=== PATIENT | female | born 1940 | race Caucasian/White ===

== ENCOUNTER → 2020-01-11 | Emergency (ER) | payer SELFPAY ==
[~2020-01-11] VITALS: Ht 1 cm; Wt 0.5 kg
[~2020-01-11] MED LIST: EPINEPHrine HCL 1 MG/10 ML SYRG IV ONE; MIDAZOLAM DRIP 50 mg/50mL 50 ML IV SCH; NOREPINEPHRINE 8 MG/250ML KIT 250 ML IV SCH; SODIUM BICARBONATE 8.4% INJ 50ML SYRINGE IV ONE; SODIUM CHLORIDE 0.9% 2,000 ML IV ONE
[2020-01-11 19:28] LABS: Basophils # (auto) 0 10 ^3/uL (0-0.2); Basophils % (auto) 0.1 % (0.0-2.0); Eosinophils # (auto) 0 10 ^3/uL (0-0.8); Lymphocytes # (auto) 1.2 10 ^3/uL (0.4-5.4)
[2020-01-11 19:30] LABS: Eosinophils % (auto) 0.1 % (0.0-7.0); Hematocrit 49.6 % (36.0-46.0); Hemoglobin 14.7 g/dL (12.2-16.2); Lymphocytes % (auto) 7.6 % (10.0-50.0); Mean Corpuscular Hemoglobin 25.8 pg (28.0-32.0); Mean Corpuscular Hgb Conc. 29.6 g/dL (32.0-36.0); Mean Corpuscular Volume 87.2 fL (80.0-100.0); Monocytes # (auto) 0.4 10 ^3/uL (0-1.3); Monocytes % (auto) 2.6 % (0.0-12.0); Neutrophils # (auto) 14.5 10 ^3/uL (1.6-8.6); Neutrophils % (auto) 89.6 % (37.0-80.0); Nucleated Red Blood Cells % 1.2 %; Platelet Count (auto) 282 10^3/uL (140-450); Red Blood Cells 5.68 10^6/uL (4.0-5.20); Red Cell Distribution Width 18.8 % (11.8-14.3); White Blood Cell 16.2 10^3/uL (4.4-10.8)
[2020-01-11 19:32] LABS: Urine Bacteria NONE SEEN /hpf (None Seen); Urine Blood 1+ /uL (Negative); Urine Hyaline Cast MANY /lpf (0 - 2); Urine Mucus FEW (None Seen); Urine Specific Gravity 1.024 (1.001-1.035); Urine WBC 2 /hpf (0 - 5)
[2020-01-11 19:42] LABS: INR 3.04 (0.9-1.15); Partial Thromboplastin Time 28.5 sec (23.64-32.05)
[2020-01-11 19:46] LABS: Albumin 1.9 g/dL (3.4-5.0); Potassium 5.3 mmol/L (3.5-5.1)
[2020-01-11 19:49] LABS: Bilirubin, Total 0.9 mg/dL (0.2-1.0); Total Protein 7.1 g/dL (6.4-8.2)
[2020-01-11 20:19] LABS: Magnesium 4.7 mg/dL (1.6-2.6)
[2020-01-11 20:41] VITALS: BP 74/44
== END | disposition expired ==
LOC: EDUNIT# 18:30 → ER 18:35 → EDBD 18:35
DX: I46.9 Cardiac arrest, cause unspecified (principal); C15.9 Malignant neoplasm of esophagus, unspecified; K92.2 Gastrointestinal hemorrhage, unspecified
CPT/HCPCS: 31500; 36415; 36600; 71045; 80053; 81001; 82805; 83735; 84484; 85025; 85610; 85730; 87070; 87077; 87186; 87205; 92950; 93005; 99285; J0171; J2250; 96365